=== PATIENT | male | born 1980 | race African-American/Black ===

== ENCOUNTER 2017-02-18 12:53 | Emergency (ER) | payer SELFPAY ==
[~2017-02-18] VITALS: Ht 185.4 cm; Wt 100.0 kg
[~2017-02-18 12:53] MED LIST: IBUP-238 PO; LORTA5 PO; PROM25SU8 PO; Z.0.NO CURRENT MEDS
[2017-02-18] MEDS ORDERED: PROPARACAINE HCL 0.5% OPHT SOLN 15 ML BTL LEFT EYE ONE (13:15)
--- NOTE | 2017-02-18 13:19 | PD ---
HPI Chief Complaint: Eye Problems/Injury Time Seen by Provider: 13:00 Travel History International Travel<30 days: No Contact w/Intl Traveler<30days: No Traveled to known affect area: No History of Present Illness HPI This is a 36-year-old gentleman who presents with left eye discomfort. The patient states that he works in a [employer] environment. He states that 2 days ago he felt a lump under his eyelid. He states he took a picture of the lump consented to his mother who stated he should come in and be evaluated. He states he feels as though there is a lump on the inner portion of his upper eyelid and when he moves his eyes from side to side he can feel it. He denies any true pain but just a foreign body sensation. There is no drainage or itching. There are no other complaints time my examination. [facility] Social History Alcohol Use: Yes (OCCAS) Tobacco Use: No (QUIT JUN 2012) Substance Use: Yes (POT OCCAS) Allergies-Medications (Allergen,Severity, Reaction): Coded Allergies: No Known Allergies (Unverified , 02/18/17) Reported Meds & Prescriptions Reported Meds & Active Scripts Active No Active Prescriptions or Reported Medications Review of Systems Except as stated in HPI: all other systems reviewed are Neg Eyes: Positive: Foreign Body Sensation (left upper eyelid), No: Diploplia, Blurred Vision, Drainage, Redness, Pain, Tearing, Visual changes HENT: No: Headaches, Lightheadedness Physical Exam Narrative GENERAL: Well-nourished, well-developed patient, in no acute rest her distress. SKIN: Focused skin assessment warm/dry. HEAD: Normocephalic/atraumatic. EYES: No scleral icterus. No injection or drainage. No palpable lump to the upper eyelid. Data Data Orders Proparacaine 0.5% Opth Soln (Alcaine 0.5 (02/18/17 13:15) Eye Irrigation (02/18/17 13:32) MDM Medical Decision Making Medical Screen Exam Complete: Yes Emergency Medical Condition: Yes Differential Diagnosis Chalazion vs foreign body vs corneal abrasion. Narrative Course 36-year-old gentleman who presents with foreign body sensation to his left upper eyelid. 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 He states he gets dust in his eyes all the time. The patient denies any redness or drainage. He states he felt a bump on the inner portion of his upper eyelid and when he moves his eye from side to side, he can feel it moving. There are no other complaints at the time my examination. Diagnosis Primary Impression: Hordeolum of left upper eyelid Additional Instructions: Warm compresses to upper eyelid 2-3 times daily 2-3 days. Wear a mask and eye protection while working. Scripts No Active Prescriptions or Reported Meds Disposition: 01 DISCHARGE HOME Condition: Stable Pancho Faye MD Feb 18, 2017 13:19
== END 2017-02-18 14:16 | disposition home or self-care (01) ==
LOC: NEPD 12:53
DX: H00.014 Hordeolum externum left upper eyelid (principal)
CPT/HCPCS: 99283